=== PATIENT | female | born 1960 | race Caucasian/White ===

== ENCOUNTER 2019-02-28 07:59 | Day surgery (SDC) | payer BC ==
[~2019-02-28 07:59] MED LIST: ACETAMINOPHEN 1,000 MG/100 ML BTL IVPB ONE; CEFAZOLIN 2 Gram 2 GM/50 ML BAG IVPB SCH
[2019-02-28] MEDS ORDERED: PROPOFOL 10 MG/ML VIAL IV ONE (08:00)
[2019-02-28] MEDS ORDERED: MIDAZOLAM HCL 2MG/2ML VIAL IV ONE (08:00)
[2019-02-28] MEDS ORDERED: ONDANSETRON HCL IV 4 MG/2 ML VIAL IVP ONE (08:00)
[2019-02-28] MEDS ORDERED: LIDOCAINE 2% MDV (20MG/ML) 20ML VIAL IV ONE (08:00)
[2019-02-28] MEDS ORDERED: KETOROLAC 30 MG/ML VIAL IVP ONE (08:00)
[2019-02-28] MEDS ORDERED: SEVOFLURANE 250 ML INH ONE (08:00)
[2019-02-28] MEDS ORDERED: FENTANYL PF 100MCG/2ML VIAL IV ONE (08:00)
[2019-02-28] MEDS ORDERED: RINGERS SOLUTION,LACTATED 1,000 ML IV ONE ×2 (08:45→10:41)
[2019-02-28] MEDS ORDERED: OXYCODONE/APAP 7.5MG/325MG TABLET PO ONE (11:02)
--- NOTE | 2019-03-02 07:50 | Operative Note ---
DATE OF SURGERY: 02/28/2019 SURGEON: Jimmie Pascual DO PREOPERATIVE DIAGNOSES: 1. Torn medial and lateral meniscus, left knee. 2. Osteoarthritis of left knee. POSTOPERATIVE DIAGNOSES: 1. Torn medial and lateral meniscus, left knee. 2. Osteoarthritis of left knee. OPERATION: 1. Arthroscopic partial medial and lateral meniscectomy of the left knee. 2. Arthroscopic chondroplasty of the patella, trochlea, and medial femoral condyle, left knee. DESCRIPTION OF PROCEDURE: This 59-year-old female was taken to the operating room and placed in the supine position on the operating room table where general anesthesia was induced. The left lower extremity was elevated. It was exsanguinated, and the tourniquet inflated to 300 mmHg. Arthroscopic knee arciniega applied. Left knee prepped with Hibiclens and draped in the usual sterile fashion. An inferolateral portal was established for the 4 mm arthroscope, and initial evaluation of the joint demonstrated normal appearance of the suprapatellar pouch; however, there was severe degenerative disease at the patellofemoral joint with grade 4 changes being noted mostly on the medial facet of the patella and grade 4 change in the center of the trochlea. There was no normal articular cartilage present in the trochlea and severe grade 3 changes also noted with loose flaps of articular cartilage. These were debrided with a rotating shaver, and chondroplasty of the patella was also performed. The medial compartment was entered, and the patient demonstrated a tear of the medial meniscus. The apex of the tear being at approximately the 11:30 position. We resected back to the apex of the tear which was 2-3 mm from the meniscosynovial junction and then tapered in each direction to form a smooth, contoured surface of the meniscus. It was re-probed after completion and found to be stable. There was advanced degenerative disease of the medial femoral condyle as well with severe grade 3 changes, and chondroplasty was performed there as well. The intracondylar notch was examined and found to be normal. The lateral compartment was entered, and a small tear of the lateral meniscus was present at the surface, at the inner surface of the meniscus. Small radial tears were present. This was debrided with a rotating shaver to stable rim. It was re-probed and confirmed to be stable. The joint was copiously irrigated and suctioned. The instruments were removed. The portals infiltrated with 0.25% Marcaine with epinephrine. Sterile dressings applied, tourniquet and knee arciniega released, and the patient taken to the recovery room in satisfactory condition. 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 Tears of both the medial and lateral meniscus were present as described. CC: ASHLEY Bacon
== END 2019-02-28 11:16 | disposition home or self-care (01) ==
LOC: SUR 07:59
PROVIDERS: ATTEND Orthopaedic Surgery
DX: S83.242A Other tear of medial meniscus, current injury, left knee, initial encounter (principal); S83.282A Other tear of lateral meniscus, current injury, left knee, initial encounter; M17.12 Unilateral primary osteoarthritis, left knee; G47.33 Obstructive sleep apnea (adult) (pediatric); E11.9 Type 2 diabetes mellitus without complications
CPT/HCPCS: 29880; 01400; 36416; 82948; J1885; J2405; J3010; J7120